=== PATIENT | male | born 1940 | race Caucasian/White ===

== ENCOUNTER → 2021-09-06 | Outpatient (REF) | payer MEDICARE, OTHER ==
[2021-09-06 13:55] LABS: PERCENT SATURATION 19.7 % (19.7-50.0); TOTAL PROTEIN 7.7 GM/DL (6.4-8.2)
== END ==
LOC: M LAB REF 12:43
PROVIDERS: ATTEND Internal Medicine Nephrology
DX: E79.0 Hyperuricemia without signs of inflammatory arthritis and tophaceous disease (principal); N18.31 Chronic kidney disease, stage 3a; D63.1 Anemia in chronic kidney disease

== ENCOUNTER 2021-10-17 12:50 | Outpatient (CLI) | payer MEDICARE, OTHER ==
[~2021-10-17] VITALS: Ht 188 cm; Wt 131.0 kg
[~2021-10-17 12:50] MED LIST: ALBUTEROL SULFATE 2.5 MG/0.5 ML INH NEB SOLN INH PRN; EPINEPHrine INJ 1 MG/ML 1ML AMP IM PRN; diphenhydrAMINE 50MG/ML VIAL (J1200) IV PRN; methylPREDNISolone 125MG 2ML VIAL IV PRN
[2021-10-17 13:00] VITALS: BP 142/68
[2021-10-17] MEDS ORDERED: NS 1,000 ML IV SCH (13:00)
[2021-10-17] MEDS ORDERED: FERRIC CARBOXYMALTOSE INJ 750 MG, VIAL MATE ADAPTER 1 EACH in NS 250 ML IV ONE (13:00)
[2021-10-17] MEDS ORDERED: HUMA100I14 SC ×2 (13:24→13:25)
[2021-10-17] MEDS ORDERED: LANTINJ4 SC (13:27)
[2021-10-17] MEDS ORDERED: ELIQ5TAB PO (13:27)
[2021-10-17] MEDS ORDERED: AMLO25TA PO (13:28)
[2021-10-17] MEDS ORDERED: FURO80TA2 PO (13:33)
[2021-10-17] MEDS ORDERED: SYNT137T7 PO (13:33)
[2021-10-17] MEDS ORDERED: BENA40TA84 PO (13:33)
[2021-10-17] MEDS ORDERED: OMEP10CASR PO (13:33)
[2021-10-17] MEDS ORDERED: ROSU40TA4 PO (13:33)
[2021-10-17] MEDS ORDERED: TERA2CAP3 PO (13:34)
[2021-10-17 14:15] VITALS: BP 168/68
[2021-10-17 15:00] VITALS: BP 170/68
== END 2021-10-17 15:00 | disposition home or self-care (01) ==
LOC: M INFU 12:50
PROVIDERS: ATTEND Internal Medicine Nephrology
DX: E61.1 Iron deficiency (principal)
CPT/HCPCS: 96365; 96366; J1439

== ENCOUNTER 2021-10-24 13:29 | Outpatient (CLI) | payer MEDICARE, OTHER ==
[~2021-10-24] VITALS: Ht 188 cm; Wt 131.5 kg
[~2021-10-24 13:29] MED LIST changes: +AMLO25TA PO; +BENA40TA84 PO; +ELIQ5TAB PO; +FURO80TA2 PO; +HUMA100I14 SC; +LANTINJ4 SC; +OMEP10CASR PO; +ROSU40TA4 PO; +SYNT137T7 PO; +TERA2CAP3 PO
[2021-10-24] MEDS ORDERED: FERRIC CARBOXYMALTOSE INJ 750 MG, VIAL MATE ADAPTER 1 EACH in NS 250 ML IV ONE (13:30)
[2021-10-24] MEDS ORDERED: NS 1,000 ML IV SCH (13:30)
[2021-10-24 14:21] VITALS: BP 178/81
[2021-10-24 15:22] VITALS: BP 142/63
== END 2021-10-24 13:55 | disposition home or self-care (01) ==
LOC: M INFU 13:29
PROVIDERS: ATTEND Internal Medicine Nephrology
DX: E61.1 Iron deficiency (principal)
CPT/HCPCS: 96365; J1439

== ENCOUNTER → 2024-04-16 | Outpatient (REF) | payer MEDICARE, OTHER ==
[~2024-04-16] MED LIST changes: -ALBUTEROL SULFATE 2.5 MG/0.5 ML INH NEB SOLN INH PRN; -EPINEPHrine INJ 1 MG/ML 1ML AMP IM PRN; -ROSU40TA4 PO; +ROSU40TA81 PO; -diphenhydrAMINE 50MG/ML VIAL (J1200) IV PRN; -methylPREDNISolone 125MG 2ML VIAL IV PRN
[2024-04-16 18:08] LABS: TOTAL PROTEIN,RANDOM URINE 48.9 MG/DL (0.0-14.0)
== END ==
LOC: M LAB REF 17:08
PROVIDERS: ATTEND Internal Medicine Nephrology
DX: N18.31 Chronic kidney disease, stage 3a (principal)

== ENCOUNTER → 2024-05-12 | Outpatient (REF) | payer MEDICARE, OTHER ==
[2024-05-13 18:12] LABS: PERCENT SATURATION 11.1 % (19.7-50.0)
[2024-05-13 18:16] LABS: FERRITIN 62.9 NG/ML (10.5-307.3)
== END ==
LOC: M LAB REF 17:12
PROVIDERS: ATTEND Nurse Practitioner Family
DX: D50.9 Iron deficiency anemia, unspecified (principal); N39.0 Urinary tract infection, site not specified

== ENCOUNTER → 2024-10-14 | Outpatient (REF) | payer MEDICARE, OTHER ==
[2024-10-14 17:41] LABS: PERCENT SATURATION 20.7 % (19.7-50.0)
== END ==
LOC: M LAB REF 17:13
PROVIDERS: ATTEND Internal Medicine Nephrology
DX: E61.1 Iron deficiency (principal)

== ENCOUNTER → 2025-02-17 | Outpatient (REF) | payer MEDICARE, OTHER ==
[2025-02-17 18:43] LABS: IRON (FE) 93.0 UG/DL (65-175); PERCENT SATURATION 32.3 % (19.7-50.0)
== END ==
LOC: M LAB REF 17:57
PROVIDERS: ATTEND Internal Medicine Nephrology
DX: N18.9 Chronic kidney disease, unspecified (principal); D63.1 Anemia in chronic kidney disease